=== PATIENT | male | born 1980 | race African-American/Black ===

== ENCOUNTER 2018-06-25 10:06 | Inpatient (IN) | payer OTHER, MEDICAID ==
[~2018-06-25] VITALS: Ht 182.9 cm; Wt 71.7 kg
[2018-06-25 10:47] LABS: BASOPHILS % (AUTO) 2.5 % (0.0-2.0); EOSINOPHILS % (AUTO) 2.4 % (1.0-6.0); HEMATOCRIT 44.3 % (41-53); HEMOGLOBIN 15.4 g/dL (13.5-17.5); LYMPHOCYTES # (AUTO) 1.2 K/uL (1.0-4.8); LYMPHOCYTES % (AUTO) 27.5 % (22.0-44.0); MEAN CORPUSCULAR HEMOGLOBIN 29.1 pg (26.0-34.0); MEAN CORPUSCULAR HGB CONC 34.7 G/dL (31.0-37.0); MEAN CORPUSCULAR VOLUME 84 fL (80-100); MONOCYTES # (AUTO) 0.3 K/uL (0.1-1.0); MONOCYTES % (AUTO) 7.5 % (2.0-9.0); NEUTROPHILS # (AUTO) 2.7 K/uL (1.8-7.7); NEUTROPHILS % (AUTO) 60.1 % (40.0-70.0); PLATELET COUNT (AUTO) 259 K/uL (150-450); RED BLOOD CELL COUNT(AUTO) 5.29 MIL/uL (4.50-5.90); RED CELL DISTRIBUTION WIDTH 13.1 % (11.5-14.5)
[2018-06-25 10:56] LABS: ANION GAP 8 mmol/L (8-16); CALCIUM, TOTAL 9.4 mg/dL (8.8-10.5); CARBON DIOXIDE 31 mmol/L (22-29); CHLORIDE 103 mmol/L (98-107); CREATININE 1.08 mg/dL (0.60-1.30); GLOMERULAR FILTR. RATE CALC > 60 mL/min (>60); GLUCOSE,RANDOM 102 mg/dL (70-110); POTASSIUM 3.4 mmol/L (3.5-5.1); SODIUM SERUM 142 mmol/L (136-145); UREA NITROGEN, BLOOD 10 mg/dL (7-18)
[2018-06-25 11:09] LABS: ALANINE AMINOTRANSFERASE 20 U/L (12-78); ALBUMIN 3.8 g/dL (3.4-5.0); ALKALINE PHOSPHATASE 107 U/L (46-116); ASPARTATE AMINOTRANSFERASE 18 U/L (15-37); BILIRUBIN,TOTAL 0.5 mg/dL (0.1-1.0); TOTAL PROTEIN, SERUM 7.7 g/dL (6.4-8.2)
[2018-06-25] MEDS ORDERED: POTASSIUM CHLORIDE 20 MEQ ER TABLET PO ONE (11:45)
[2018-06-25] MEDS ORDERED: LORazepam 2 MG TABLET PO ONE (12:15)
[2018-06-25] MEDS ORDERED: HALOPERIDOL 5 MG TABLET PO ONE (12:15)
[2018-06-25] MEDS ORDERED: ZOLPIDEM TARTRATE 10 MG TABLET PO PRN (12:45)
[2018-06-25] MEDS ORDERED: HALOPERIDOL 5 MG TABLET PO PRN (12:45)
[2018-06-25] MEDS ORDERED: LORazepam 2 MG TABLET PO PRN (12:45)
[2018-06-26 07:32] LABS: CHOL/HDL RATIO 2.9 (4.2-7.3)
[2018-06-26 08:19] VITALS: BP 131/81
[2018-06-26] MEDS: DIVALPROEX SODIUM 500 MG DR TABLET PO SCH (18:00)
[2018-06-26 20:36] VITALS: BP 122/73
[2018-06-26] MEDS ORDERED: OLANZapine 10 MG TABLET PO SCH (21:00)
[2018-06-27 08:18] VITALS: BP 124/65
[2018-06-27] MEDS: DIVALPROEX SODIUM 500 MG DR TABLET PO SCH (09:32)
[2018-06-27 12:51] LABS: ANION GAP 7 mmol/L (8-16); CALCIUM, TOTAL 9.2 mg/dL (8.8-10.5); CARBON DIOXIDE 33 mmol/L (22-29); CHLORIDE 104 mmol/L (98-107); CREATININE 1.12 mg/dL (0.60-1.30); GLOMERULAR FILTR. RATE CALC > 60 mL/min (>60); GLUCOSE,RANDOM 107 mg/dL (70-110); SODIUM SERUM 144 mmol/L (136-145); UREA NITROGEN, BLOOD 11 mg/dL (7-18)
[2018-06-27] MEDS ORDERED: OLAN10TA3 PO (15:02)
[2018-06-27] MEDS ORDERED: DIVA-78 PO (15:02)
== END 2018-06-27 15:40 | DRG 885 ==
LOC: EMS 10:07 → 3EC 13:07
PROVIDERS: ADMIT Psychiatry & Neurology Psychiatry; ATTEND Psychiatry & Neurology Psychiatry
DX: F20.0 Paranoid schizophrenia (principal); E87.6 Hypokalemia; G47.00 Insomnia, unspecified; K59.00 Constipation, unspecified; Z28.21 Immunization not carried out because of patient refusal; Z79.899 Other long term (current) drug therapy
CPT/HCPCS: G0480